=== PATIENT | female | born 1985 | race Caucasian/White ===

== ENCOUNTER 2018-11-20 04:16 | Emergency (ER) | payer MEDICAID ==
[2018-11-20] MEDS ORDERED: Albuterol-Ipratrop 3 mg / 0.5 (3 ml) UD INH STA ×3 (04:25→05:26)
--- NOTE | 2018-11-20 04:39 | ED PDOC ---
HPI: Asthma Chief Complaint (Provider): asthma exacerbation History Per: Patient History/Exam Limitations: no limitations EM Caveat: Respiratory Distress Additional Complaint(s): 33 y/o F with hx of asthma (never intubated) who woke up from sleep with SOB and could not find her inhaler and was in too much distress to coordinate preparing her nebulizer treatment so called 911. She was given DuoNeb en route to ER. Her O2 sat was 99% during transport to ER. Denies recent URI symptoms, no cough, fever, chills, runny nose, sore throat. <Bernie Rosenbaum - Last Filed: 11/21/18 05:29> <Gm Case - Last Filed: 11/21/18 19:17> Time Seen by Provider: 11/20/18 04:24 Chief Complaint (Nursing): Respiratory Distress Past Medical History Reviewed: Historical Data, Nursing Documentation, Vital Signs Vital Signs: Last Vital Signs Temp 97.7 F 11/20/18 04:19 Pulse 98 H 11/20/18 04:19 Resp 20 11/20/18 04:19 BP 148/107 H 11/20/18 04:19 Pulse Ox 99 11/20/18 04:19 - Medical History PMH: Asthma - Family History Family History: States: Unknown Family Hx - Immunization History Hx Tetanus Toxoid Vaccination: Yes Hx Influenza Vaccination: Yes Hx Pneumococcal Vaccination: No <Bernie Rosenbaum - Last Filed: 11/21/18 05:29> Vital Signs: Last Vital Signs Temp 98.1 F 11/20/18 06:11 Pulse 101 H 11/20/18 06:11 Resp 19 11/20/18 06:11 BP 118/69 11/20/18 06:42 Pulse Ox 99 11/21/18 05:31 <Gm Case - Last Filed: 11/21/18 19:17> - Home Medications Home Medications: Ambulatory Orders Medication Instructions Recorded Albuterol HFA [Ventolin HFA 90 1 puff IH PRN 04/19/14 mcg/actuation (8 g)] Montelukast [Singulair] 10 mg PO DAILY 04/19/14 Albuterol 0.5% [Albuterol 0.5% 2.5 mg IH Q6 PRN #1 bottle 08/28/16 Inhal Devora (2.5 mg/0.5 ml) UD] Benzonatate [Tessalon Perles] 100 mg PO BID PRN #15 sgl 08/28/16 RX: Albuterol HFA [Ventolin HFA 90 0.09 mg IH Q4 PRN #1 puff 08/28/16 mcg/actuation (8 g)] RX: predniSONE [predniSONE Tab] 40 mg PO DAILY #8 tab 08/28/16 Albuterol Sulfate [Proair Hfa] 8.5 gm IH Q4 #1 inh 11/20/18 RX: Albuterol HFA [Ventolin HFA 90 1 puff IH Q4 PRN #1 puff 11/20/18 mcg/actuation (8 g)] RX: Prednisone [Deltasone] 40 mg PO DAILY #4 tablet 11/20/18 - Allergies Allergies/Adverse Reactions: Allergies Allergy/AdvReac Type Severity Reaction Status Date / Time No Known Allergies Allergy Verified 11/20/18 04:19 Physical Exam - Reviewed Nursing Documentation Reviewed: Yes Vital Signs Reviewed: Yes - Physical Exam Appears: Positive for: In Acute Distress Cardiovascular/Chest: Positive for: Regular Rate, Rhythm Respiratory: Positive for: Wheezing (B/L diffuse expiratory wheezing, Right > Left), Respiratory Distress Lymphatic: Positive for: Normal Exam Neurologic/Psych: Positive for: Alert, Oriented <Bernie Rosenbaum - Last Filed: 11/21/18 05:29> - ECG O2 Sat by Pulse Oximetry: 99 <Bernie Rosenbaum - Last Filed: 11/21/18 05:29> Medical Decision Making Medical Decision Making: DuoNeb X 2 Solu-Medrol 125mg IV x 1 Urine preg 5:30am: Re-evaluated, mild expiratory wheeze on Right; additional DuoNeb 3mL x 1 ordered. Patient endorsed to Dr. Case pending CXR results. <Bernie Rosenbaum - Last Filed: 11/21/18 05:29> Medical Decision Makin Patient is no longer wheezing, speaking full sentences, saturating well on RA CXR is normal Patient is very well appearing and stable for discharge <Gm Case - Last Filed: 11/21/18 19:17> Disposition - Patient ED Disposition Is Patient to be Admitted: Transfer of Care (Dr. Case) - Disposition Disposition: Transfer of Care Disposition Time: 06:35 <Bernie Rosenbaum - Last Filed: 11/21/18 05:29> - Disposition Disposition: Routine/Home Disposition Time: 07:00 <Gm Case - Last Filed: 11/21/18 19:17> - Clinical Impression Clinical Impression: Asthma exacerbation - Disposition Referrals: Charla Kirby MD [Medical Doctor] - Condition: IMPROVED Prescriptions: RX: Albuterol HFA [Ventolin HFA 90 mcg/actuation (8 g)] 1 puff IH Q4 PRN #1 puff PRN Reason: Shortness Of Breath Albuterol Sulfate [Proair Hfa] 8.5 gm IH Q4 #1 inh RX: Prednisone [Deltasone] 40 mg PO DAILY #4 tablet Instructions: Asthma in Adults Forms: [facility] (Uzbek)
[2018-11-20] MEDS ORDERED: Albuterol-Ipratrop 3 mg / 0.5 (3 ml) UD ONE (05:31)
[2018-11-20 06:12] VITALS: PULSE 101; RESP 19; TEMP 98.1
[2018-11-20 06:43] VITALS: BP 118/69
--- NOTE | 2018-11-20 09:23 | RAD ---
Date of service: 11/20/2018 HISTORY: shortness of breath, cough COMPARISON: No prior. TECHNIQUE: Chest PA and lateral FINDINGS: LUNGS: No active pulmonary disease. PLEURA: No significant pleural effusion identified. No pneumothorax apparent. CARDIOVASCULAR: No aortic atherosclerotic calcification present. Normal cardiac size. No pulmonary vascular congestion. OSSEOUS STRUCTURES: No significant abnormalities. VISUALIZED UPPER ABDOMEN: Normal. OTHER FINDINGS: None. IMPRESSION: No active disease.
[2018-11-21 05:31] VITALS: O2SAT 99
== END 2018-11-20 07:10 | disposition home or self-care (01) ==
LOC: H.ER 04:16
DX: J45.901 Unspecified asthma with (acute) exacerbation (principal)
CPT/HCPCS: 71046; 81025; 94640; 96374; 99284; J2930